=== PATIENT | male | born 1995 | race Caucasian/White ===

== ENCOUNTER 2021-08-03 20:00 | Outpatient (CLI) | payer BC, SELFPAY | END 2021-08-03 20:01 | disposition home or self-care (01) | LOC: SLEEP 08-04 06:07 | PROVIDERS: Family Provider Family Medicine; Visit Provider Anesthesiology Pain Medicine | DX: G47.33 Obstructive sleep apnea (adult) (pediatric) (principal) | CPT/HCPCS: 95810 ==

== ENCOUNTER 2021-09-10 20:00 | Outpatient (CLI) | payer BC, SELFPAY | END 2021-09-10 20:01 | disposition home or self-care (01) | LOC: SLEEP 09-11 05:56 | PROVIDERS: Family Provider Family Medicine; Visit Provider Anesthesiology Pain Medicine | DX: G47.33 Obstructive sleep apnea (adult) (pediatric) (principal) | CPT/HCPCS: 95811 ==